=== PATIENT | male | born 1945 | race Caucasian/White ===

== ENCOUNTER 2020-10-23 18:47 | Inpatient (IN) | payer OTHER, MEDICARE ==
[2020-10-23] MEDS ORDERED: RX INFO: IV CONTRAST WAS GIVEN 1 EACH MISC MISCELLANE PRN (19:09)
[2020-10-23] MEDS ORDERED: DIPH,PERTUS(ACELL)TETVAC-LF 0.5 ML VIAL IM ONE (19:11)
[2020-10-23] MEDS ORDERED: MORPHINE SULFATE 4 MG/ML SYRINGE IV STA (19:11)
--- NOTE | 2020-10-23 19:12 | ED ---
Fall [facility] - General Chief Complaint: Fall Stated Complaint: fall, multiple lacs Time Seen by Provider: 10/23/20 19:04 Source: patient Mode of arrival: wheelchair - History of Present Illness Initial Comments: Patient presents with injuries after a fall. He has some abrasions on the right knee and left elbow. He complains of pain in the left abdomen and left chest. He did not hit his head. He develops conscious. He has no neck pain or stiffness. He has no nausea or vomiting. He has no weakness. He has no lightheadedness. He has no dizziness. He had no chest pain or pressure. - Related Data Allergies Allergy/AdvReac Type Severity Reaction Status Date / Time No Known Allergies Allergy Verified 10/23/20 18:58 Review of Systems ROS Statement: Those systems with pertinent positive or pertinent negative responses have been documented in the HPI. ROS Other: All systems not noted in ROS Statement are negative. Past Medical History Past Medical History: Heart Failure, Hypertension, Myocardial Infarction ([place]) Past Surgical History: Appendectomy, Coronary Bypass/CABG, Heart Catheterization With Stent Past Psychological History: No Psychological Hx Reported Smoking Status: Never smoker Past Alcohol Use History: None Reported Past Drug Use History: None Reported General Exam Limitations: no limitations General appearance: alert, in no apparent distress Head exam: Present: atraumatic, normocephalic, normal inspection Eye exam: Present: normal appearance, PERRL, EOMI. Absent: scleral icterus, conjunctival injection, periorbital swelling ENT exam: Present: normal exam, mucous membranes moist Neck exam: Present: normal inspection. Absent: tenderness, meningismus, lymphadenopathy Respiratory exam: Present: normal lung sounds bilaterally. Absent: respiratory distress, wheezes, rales, rhonchi, stridor Cardiovascular Exam: Present: regular rate, normal rhythm, normal heart sounds. Absent: systolic murmur, diastolic murmur, rubs, gallop, clicks GI/Abdominal exam: Present: soft, normal bowel sounds. Absent: distended, tenderness, guarding, rebound, rigid Extremities exam: Present: normal inspection, full ROM, normal capillary refill. Absent: tenderness, pedal edema, joint swelling, calf tenderness Back exam: Present: normal inspection Neurological exam: Present: alert, oriented X3, CN II-XII intact Psychiatric exam: Present: normal affect, normal mood Skin exam: Present: warm, dry, normal color, other (skin tears). Absent: rash Course Vital Signs 10/23/20 10/23/20 10/23/20 18:58 19:31 20:02 Temperature 97.5 F L Pulse Rate 104 H 65 60 Respiratory 24 20 16 Rate Blood Pressure 85/52 105/65 106/61 O2 Sat by Pulse 99 99 97 Oximetry 10/23/20 10/23/20 20:20 20:53 Temperature Pulse Rate 61 61 Respiratory 18 Rate Blood Pressure 92/47 83/47 O2 Sat by Pulse 96 Oximetry Medical Decision Making - Medical Decision Making Patient presents with a fall. He has multiple rib fractures. I consult surgery. He will be admitted to the hospital. - Lab Data Result diagrams: 10/23/20 19:30 10/23/20 19:20 Lab Results 10/23/20 10/23/20 10/23/20 Range/Units 19:20 19:20 19:30 WBC 15.4 H (3.8-10.6) k/uL RBC 4.13 L (4.30-5.90) m/uL Hgb 13.5 (13.0-17.5) gm/dL Hct 40.1 (39.0-53.0) % MCV 97.1 (80.0-100.0) fL MCH 32.6 (25.0-35.0) pg MCHC 33.6 (31.0-37.0) g/dL RDW 13.1 (11.5-15.5) % Plt Count 345 (150-450) k/uL MPV 7.4 Neutrophils % 86 % Lymphocytes % 9 % Monocytes % 3 % Eosinophils % 1 % Basophils % 0 % Neutrophils # 13.3 H (1.3-7.7) k/uL Lymphocytes # 1.3 (1.0-4.8) k/uL Monocytes # 0.5 (0-1.0) k/uL Eosinophils # 0.1 (0-0.7) k/uL Basophils # 0.1 (0-0.2) k/uL PT 10.5 (9.0-12.0) sec INR 1.0 (<1.2) APTT 22.5 (22.0-30.0) sec Sodium 136 L (137-145) mmol/L Potassium 4.2 (3.5-5.1) mmol/L Chloride 101 (98-107) mmol/L Carbon Dioxide 24 (22-30) mmol/L Anion Gap 11 mmol/L BUN 32 H (9-20) mg/dL Creatinine 1.49 H (0.66-1.25) mg/dL Est GFR (CKD-EPI)AfAm 53 (>60 ml/min/1.73 sqM) Est GFR (CKD-EPI)NonAf 45 (>60 ml/min/1.73 sqM) Glucose 151 H (74-99) mg/dL Calcium 9.3 (8.4-10.2) mg/dL 10/23/20 20:41 Twelve-lead EKG shows ventricular rate 64 bpm, there are no P waves present, the QRS complex is wide, there is no ST elevation or depression, interpreted by me as a ventricular paced rhythm. Disposition Clinical Impression: Rib fractures Disposition: ADMITTED IP TO THIS HOSP Condition: Fair Is patient prescribed a controlled substance at d/c from ED?: No Referrals: Nonstaff,Physician [Primary Care Provider] - 1-2 days
[2020-10-23] MEDS ORDERED: SODIUM CHLORIDE 0.9% 1,000 ML IV ONE (19:29)
[2020-10-23 19:39] LABS: Calcium 9.3 mg/dL (8.4-10.2); Potassium 4.2 mmol/L (3.5-5.1)
[2020-10-23 19:40] LABS: Partial Thromboplastin Time 22.5 sec (22.0-30.0); Prothrombin Time 10.5 sec (9.0-12.0)
[2020-10-23 19:42] LABS: Basophils # (A) 0.1 k/uL (0-0.2); Basophils % (A) 0 %; Eosinophils # (A) 0.1 k/uL (0-0.7); Eosinophils % (A) 1 %; HCT 40.1 % (39.0-53.0); HGB 13.5 gm/dL (13.0-17.5); Lymphocytes # (A) 1.3 k/uL (1.0-4.8); Lymphocytes % (A) 9 %; MCH 32.6 pg (25.0-35.0); MCHC 33.6 g/dL (31.0-37.0); MCV 97.1 fL (80.0-100.0); Mean Platelet Volume 7.4; Monocytes # (A) 0.5 k/uL (0-1.0); Monocytes % (A) 3 %; Neutrophils # (A) 13.3 k/uL (1.3-7.7); Neutrophils % (A) 86 %; Platelet Count 345 k/uL (150-450); RBC 4.13 m/uL (4.30-5.90); RDW 13.1 % (11.5-15.5); WBC 15.4 k/uL (3.8-10.6)
--- NOTE | 2020-10-23 19:50 | XR ---
EXAMINATION TYPE: XR shoulder complete LT DATE OF EXAM: 10/23/2020 COMPARISON: NONE HISTORY: Fall. Pain. TECHNIQUE: 3 views FINDINGS: I see no fracture nor dislocation. AC joint is intact. There is mild spurring at the AC cain nt. The glenohumeral joint is intact. There is left axillary pacemaker. IMPRESSION: Negative left shoulder exam.
--- NOTE | 2020-10-23 19:56 | XR ---
EXAMINATION TYPE: XR elbow complete LT DATE OF EXAM: 10/23/2020 COMPARISON: NONE HISTORY: Fall. Pain per TECHNIQUE: 3 views FINDINGS: I see no fracture nor dislocation. Elbow joint spaces are fairly normal. There is no sign o f elbow joint effusion. IMPRESSION: Negative left elbow exam. No fracture seen.
[2020-10-23] MEDS ORDERED: ONDANSETRON 4 MG/2 ML VIAL IVP PRN (21:00)
[2020-10-23] MEDS ORDERED: NALOXONE 0.4 MG/ML 1 ML VIAL IV PRN (21:00)
--- NOTE | 2020-10-23 21:01 | CT ---
EXAMINATION TYPE: CT ChestAbdPelvis w con DATE OF EXAM: 10/23/2020 COMPARISON: None HISTORY: Pt fall Pain CT DLP: 1567.3 mGycm Automated exposure control for dose reduction was used. CONTRAST: Performed with IV Contrast, patient injected with 80 mL of Isovue 300. Images obtained from the thoracic inlet to the floor the pelvis with IV contrast. There is some interstitial infiltrate and atelectasis at both lung bases. There is mild left pleural effusion. Heart is moderately enlarged. There is no pericardial effusion. Thoracic aorta is intact. T here is no aneurysm or dissection. There is enlarged 1.8 cm paratracheal lymph node. There are right bronchial lymph nodes measuring up to 1 cm. There is coronary artery calcification. There are sternal wires. Liver spleen stomach pancreas gallbladder appear intact. The bile ducts are not dilated. There is no adrenal mass. Kidneys show satisfactory contrast opacification. There is no hydronephrosi s. Ureters are not dilated. There is no retroperitoneal adenopathy. Bladder distends smoothly. There is no inguinal hernia. There is no free fluid in the pelvis. There are multiple sigmoid diverticula. There is no diverticulitis. There is minimal prostate calcification. There is no free fluid in the pe lvis. There is no mesenteric edema. There is no ascites or free air. There is no evidence of bowel obstruct ion. The thoracic and lumbar vertebra have normal alignment. There is no compression fracture. The bony pe lvis is intact. The hip joints are intact. There is no hip dysplasia. The shoulder joints are intact. There are fractures of the posterior lateral left side seventh and ei ghth and ninth and 10th ribs. IMPRESSION: Sigmoid diverticulosis without diverticulitis. Atherosclerotic vascular disease. Minimal infiltrate and atelectasis at the lung bases mainly on the left side. Small left pleural effu leonie. Moderate cardiomegaly. Multiple left-sided rib fractures. Pleural fluid on the left side could relate to hemothorax. No evidence of a pneumothorax.
[2020-10-23] MEDS: FAMOTIDINE 20 MG TAB PO SCH (21:46)
[2020-10-23] MEDS: HYDROcodone/APAP 5-325MG 1 EACH TAB PO PRN (23:20)
[2020-10-24 06:34] LABS: Basophils % (A) 0 %; Eosinophils # (A) 0.1 k/uL (0-0.7); Eosinophils % (A) 1 %; HCT 32.4 % (39.0-53.0); HGB 11.2 gm/dL (13.0-17.5); Lymphocytes # (A) 0.8 k/uL (1.0-4.8); Lymphocytes % (A) 9 %; MCH 33.6 pg (25.0-35.0); MCHC 34.6 g/dL (31.0-37.0); MCV 97.1 fL (80.0-100.0); Mean Platelet Volume 7.3; Monocytes # (A) 0.5 k/uL (0-1.0); Monocytes % (A) 6 %; Neutrophils # (A) 7.3 k/uL (1.3-7.7); Neutrophils % (A) 83 %; Platelet Count 215 k/uL (150-450); RBC 3.34 m/uL (4.30-5.90); RDW 13.2 % (11.5-15.5); WBC 8.9 k/uL (3.8-10.6)
--- NOTE | 2020-10-24 06:46 | XR ---
EXAMINATION TYPE: XR chest 1V DATE OF EXAM: 10/24/2020 CLINICAL HISTORY: Pain after recent trauma. TECHNIQUE: Single AP portable upright view of the chest is obtained. COMPARISON: CT from one day earlier FINDINGS: Osseous structures are demineralized. Underlying scoliotic curvature or positioning redemo nstrated. Persistent cardiomegaly with multilead pacemaker/fibrillator. Overlying sternal wires and m ediastinal clips redemonstrated. Worsening bilateral central opacities and possible left basilar opac ity. IMPRESSION: Cardiomegaly with new moderate central alveolar edema suggesting CHF exacerbation, correl ate clinically. Developing left basilar acute infiltrate not excluded. Progress study advised.
[2020-10-24] MEDS: HYDROcodone/APAP 5-325MG 1 EACH TAB PO PRN (08:09)
[2020-10-24] MEDS: DOCUSATE 100 MG CAP PO SCH (08:10)
[2020-10-24] MEDS: AMIODARONE 200 MG TAB PO SCH (11:57)
[2020-10-24] MEDS: PANTOPRAZOLE 40 MG TABLET PO SCH (11:57)
[2020-10-24] MEDS: FUROSEMIDE 10 MG/ML 10 ML VIAL IV SCH ×2 (11:57→22:10)
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
[2020-10-24] MEDS: HYDROmorphone 1 MG/ML 1 ML SYRINGE IVP PRN ×2 (13:04→20:16)
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
[2020-10-24] MEDS: PRAVASTATIN SODIUM 80 MG TAB PO SCH (22:10)
[2020-10-24] MEDS: APIXABAN 5 MG TAB PO SCH (22:10)
[2020-10-24] MEDS: FAMOTIDINE 20 MG TAB PO SCH (22:11)
[2020-10-25] MEDS: HYDROmorphone 1 MG/ML 1 ML SYRINGE IVP PRN ×2 (01:59→06:17)
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
[2020-10-25] MEDS: PANTOPRAZOLE 40 MG TABLET PO SCH (06:18)
[2020-10-25 08:03] LABS: Basophils # (A) 0.1 k/uL (0-0.2); Basophils % (A) 0 %; Eosinophils # (A) 0.1 k/uL (0-0.7); Eosinophils % (A) 1 %; HCT 36.6 % (39.0-53.0); HGB 12.1 gm/dL (13.0-17.5); Lymphocytes # (A) 1.3 k/uL (1.0-4.8); Lymphocytes % (A) 10 %; MCH 32.7 pg (25.0-35.0); MCHC 33.1 g/dL (31.0-37.0); MCV 98.6 fL (80.0-100.0); Mean Platelet Volume 7.5; Monocytes # (A) 0.8 k/uL (0-1.0); Monocytes % (A) 7 %; Neutrophils # (A) 9.8 k/uL (1.3-7.7); Neutrophils % (A) 80 %; Platelet Count 241 k/uL (150-450); RBC 3.71 m/uL (4.30-5.90); RDW 13.1 % (11.5-15.5); WBC 12.1 k/uL (3.8-10.6)
[2020-10-25 08:13] LABS: African American GFR (CKD) >90 (>60 ml/min/1.73 sqM); Anion Gap 9 mmol/L; Blood Urea Nitrogen 17 mg/dL (9-20); Calcium 9.1 mg/dL (8.4-10.2); Carbon Dioxide 30 mmol/L (22-30); Chloride 98 mmol/L (98-107); Glucose 112 mg/dL (74-99); Non-African American GFR(CKD) 84 (>60 ml/min/1.73 sqM); Sodium 137 mmol/L (137-145)
[2020-10-25] MEDS: METOPROLOL SUCCINATE (ER) 25 MG TAB.ER.24H PO SCH (08:18)
[2020-10-25] MEDS: HYDROcodone/APAP 5-325MG 1 EACH TAB PO PRN ×4 (08:18→21:11)
[2020-10-25] MEDS: APIXABAN 5 MG TAB PO SCH ×2 (08:19→20:12)
[2020-10-25] MEDS: AMIODARONE 200 MG TAB PO SCH (08:19)
[2020-10-25] MEDS: FUROSEMIDE 10 MG/ML 10 ML VIAL IV SCH ×2 (08:19→20:12)
[2020-10-25] MEDS: Eplerenone [Eplerenone] 25 MG Tablet PO SCH (08:19)
[2020-10-25] MEDS: DOCUSATE 100 MG CAP PO SCH (08:19)
--- NOTE | 2020-10-25 08:56 | XR ---
EXAMINATION TYPE: XR chest 1V portable DATE OF EXAM: 10/25/2020 Comparison: 10/24/2020 Clinical History: 75-year-old male pleural effusion Findings: Left anterior chest wall AICD generator with 2 right ventricular leads, a right atrial, and a coronar y sinus lead. Mildly enlarged. Median sternotomy wires are present with post-CABG clips. Mild interst itial prominence. Retrocardiac opacity persists. Perihilar density shows some improvement. Impression: Most of the interstitial changes are suspected to be chronic but there has been slight improvement. R etrocardiac effusion with atelectasis and/or consolidation is similar.
[2020-10-25] MEDS ORDERED: lisinopriL 10 MG TAB PO SCH (09:00)
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
--- NOTE | 2020-10-25 12:42 | P.PN ---
Subjective Progress Note Date: 10/25/20 CHIEF COMPLAINT: Fall with rib fractures HISTORY OF PRESENT ILLNESS: Patient still complaining of left-sided rib pain. Pain medication does make it tolerable. Shortness of breath is improving. Oxygen requirements down from 3-2 L. He has felt that pulmonary service. Decreased appetite. Chest x-ray most of the interstitial changes are suspected to be chronic but there has been slight improvement. Retrocardiac effusion with atelectasis and/or consolidation similar. Afebrile. WBC 12.1 and hemoglobin 12.1 platelets 241 PHYSICAL EXAM: VITAL SIGNS: Reviewed. GENERAL: Well-developed in no acute distress. HEENT: No sclera icterus. Extraocular movements grossly intact. Moist buccal mucosa. Head is atraumatic, normocephalic. ABDOMEN: Soft. Nondistended. Nontender. NEUROLOGIC: Alert and oriented. Cranial nerves II through XII grossly intact. Skin: Extensive bruising along the left rib cage. Skin abrasions on both knees ASSESSMENT: 1. Trauma secondary to fall 2. Multiple left-sided rib fractures 3. Small left pleural effusion suspected hemothorax. No evidence of pneumothorax 4. Acute hypoxic respiratory failure PLAN: -Consult PT OT -Encourage patient to increase activity -Encourage patient to use incentive spirometer -Continue pain medication as needed -Continue supportive care Physician Special Education Assistant note has been reviewed by physician. Signing provider agrees with the documented findings, assessment, and plan of care. Objective - Vital Signs Vital signs: Vital Signs Temp 97.8 F 10/25/20 07:55 Pulse 68 10/25/20 11:30 Resp 18 10/25/20 11:30 BP 129/58 10/25/20 11:30 Pulse Ox 97 10/25/20 11:30 Intake & Output 10/24/20 10/25/20 10/25/20 18:59 06:59 18:59 Output Total 975 225 Balance -975 -225 Weight 77.111 kg 75.4 kg Output: Urine 975 225 Other: Voiding Method Urinal Urinal Urinal - Labs CBC & Chem 7: 10/25/20 07:28 10/25/20 07:28 Labs: Abnormal Lab Results - Last 24 Hours (Table) 10/25/20 10/25/20 Range/Units 07:28 07:28 WBC 12.1 H (3.8-10.6) k/uL RBC 3.71 L (4.30-5.90) m/uL Hgb 12.1 L (13.0-17.5) gm/dL Hct 36.6 L (39.0-53.0) % Neutrophils # 9.8 H (1.3-7.7) k/uL Glucose 112 H (74-99) mg/dL
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
[2020-10-25] MEDS: FAMOTIDINE 20 MG TAB PO SCH (20:12)
[2020-10-25] MEDS: PRAVASTATIN SODIUM 80 MG TAB PO SCH (22:21)
[2020-10-26] MEDS: HYDROcodone/APAP 5-325MG 1 EACH TAB PO PRN ×4 (02:20→17:43)
[2020-10-26 06:14] LABS: Basophils % (A) 0 %; Eosinophils # (A) 0.1 k/uL (0-0.7); Eosinophils % (A) 1 %; HCT 33.4 % (39.0-53.0); HGB 11.1 gm/dL (13.0-17.5); Lymphocytes # (A) 1.1 k/uL (1.0-4.8); Lymphocytes % (A) 11 %; MCH 32.5 pg (25.0-35.0); MCHC 33.4 g/dL (31.0-37.0); MCV 97.5 fL (80.0-100.0); Mean Platelet Volume 8.3; Monocytes # (A) 0.7 k/uL (0-1.0); Monocytes % (A) 7 %; Neutrophils # (A) 7.6 k/uL (1.3-7.7); Neutrophils % (A) 79 %; Platelet Count 221 k/uL (150-450); RBC 3.42 m/uL (4.30-5.90); RDW 13.1 % (11.5-15.5); WBC 9.6 k/uL (3.8-10.6)
[2020-10-26] MEDS: PANTOPRAZOLE 40 MG TABLET PO SCH (06:28)
[2020-10-26] MEDS: FUROSEMIDE 10 MG/ML 10 ML VIAL IV SCH (08:56)
[2020-10-26] MEDS: DOCUSATE 100 MG CAP PO SCH (08:57)
[2020-10-26] MEDS: AMIODARONE 200 MG TAB PO SCH (08:57)
[2020-10-26] MEDS: APIXABAN 5 MG TAB PO SCH ×2 (08:57→20:45)
[2020-10-26] MEDS: METOPROLOL SUCCINATE (ER) 25 MG TAB.ER.24H PO SCH (08:57)
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
[2020-10-26] MEDS: Eplerenone [Eplerenone] 25 MG Tablet PO SCH (12:02)
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
--- NOTE | 2020-10-26 12:50 | P.PN ---
Subjective Progress Note Date: 10/26/20 CHIEF COMPLAINT: Fall with rib fractures HISTORY OF PRESENT ILLNESS: Patient reported improvement in his pain each day. He is up and sitting in bedside chair. He was seen by cardiology they've ordered a 2-D echo. He denies any nausea or vomiting. Appetite is still diminished. Afebrile. White count has normalized at 9.6 hemoglobin is 11.1 he is on room air satting at 91%. PHYSICAL EXAM: VITAL SIGNS: Reviewed. GENERAL: Well-developed in no acute distress. HEENT: No sclera icterus. Extraocular movements grossly intact. Moist buccal mucosa. Head is atraumatic, normocephalic. ABDOMEN: Soft. Nondistended. Nontender. NEUROLOGIC: Alert and oriented. Cranial nerves II through XII grossly intact. Skin: Extensive bruising along the left rib cage. Skin abrasions on both knees ASSESSMENT: 1. Trauma secondary to fall 2. Multiple left-sided rib fractures 3. Small left pleural effusion suspected hemothorax. No evidence of pneumothorax 4. Acute hypoxic respiratory failure PLAN: -Encourage patient to increase activity -Encourage patient to use incentive spirometer -Continue pain medication as needed -Continue supportive care -Anticipate discharge tomorrow Physician Server Manager note has been reviewed by physician. Signing provider agrees with the documented findings, assessment, and plan of care. Objective - Vital Signs Vital signs: Vital Signs Temp 98.2 F 10/26/20 08:05 Pulse 68 10/26/20 08:05 Resp 17 10/26/20 10:36 BP 99/60 10/26/20 08:05 Pulse Ox 91 L 10/26/20 10:36 Intake & Output 10/25/20 10/26/20 10/26/20 18:59 06:59 18:59 Intake Total 480 600 Output Total 225 900 600 Balance 255 -300 -600 Weight 75.4 kg Intake: Oral 480 600 Output: Urine 225 900 600 Other: Voiding Method Urinal Urinal # Voids 1 - Labs CBC & Chem 7: 10/26/20 05:54 10/25/20 07:28 Labs: Abnormal Lab Results - Last 24 Hours (Table) 10/26/20 Range/Units 05:54 RBC 3.42 L (4.30-5.90) m/uL Hgb 11.1 L (13.0-17.5) gm/dL Hct 33.4 L (39.0-53.0) %
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
--- NOTE | 2020-10-26 18:29 | ECHOF ---
Referral Reason:LV function MEASUREMENTS -------- HEIGHT: 165.1 cm WEIGHT: 75.3 kg BP: 99/60 RVIDd: 3.3 cm (< 3.3) IVSd: 1.0 cm (0.6 - 1.1) LVIDd: 6.4 cm (3.9 - 5.3) LVPWd: 1.1 cm (0.6 - 1.1) IVSs: 1.0 cm LVIDs: 6.2 cm LVPWs: 1.3 cm LA Diam: 4.5 cm (2.7 - 3.8) LAESV Index (A-L): 40.75 ml/m Ao Diam: 3.2 cm (2.0 - 3.7) AV Cusp: 1.5 cm (1.5 - 2.6) MV EXCURSION: 13.883 mm (> 18.000) MV EF SLOPE: 33 mm/s (70 - 150) EPSS: 3.7 cm MV E Sai: 0.70 m/s MV DecT: 268 ms MV A Sai: 0.82 m/s MV E/A Ratio: 0.85 RAP: 5.00 mmHg RVSP: 34.50 mmHg FINDINGS -------- This was a technically difficult study with suboptimal views. The left ventricle is moderately dilated. There is borderline concentric left ventricular hypertrop hy. Overall left ventricular systolic function is severely impaired with, an EF < 20%. Global hyp okinesis The right ventricle is mildly enlarged. LA is severely dilated >40 ml/m2 The right atrium was not well visualized. 5 ml of Lumason was utilized for enhancement of images. Interatrial and interventricular septum intact. The aortic valve is trileaflet, and appears structurally normal. No aortic stenosis or regurgitation. Mild mitral annular calcification present. Mild tricuspid regurgitation present. Right ventricular systolic pressure is normal at < 35 mmHg. The right ventricular systolic pressure, as measured by Doppler, is 34.50mmHg. The pulmonic valve was not well visualized. The aortic root size is normal. Normal inferior vena cava with normal inspiratory collapse consistent with estimated right atrial pre ssure of 5 mmHg. There is no pericardial effusion. CONCLUSIONS -------- 1. This was a technically difficult study with suboptimal views. 2. The left ventricle is moderately dilated. 3. There is borderline concentric left ventricular hypertrophy. 4. Overall left ventricular systolic function is severely impaired with, an EF < 20%. 5. Global hypokinesis 6. The right ventricle is mildly enlarged. 7. LA is severely dilated >40 ml/m2 8. 5 ml of Lumason was utilized for enhancement of images. 9. The aortic valve is trileaflet, and appears structurally normal. No aortic stenosis or regurgitati on. 10. Mild mitral annular calcification present. 11. Mild tricuspid regurgitation present. 12. There is no pericardial effusion. [employer] SUPERVISOR: Karla Vogt RDCS
[2020-10-26] MEDS: HYDROmorphone 1 MG/ML 1 ML SYRINGE IVP PRN (20:44)
[2020-10-26] MEDS: FAMOTIDINE 20 MG TAB PO SCH (20:45)
[2020-10-26] MEDS: PRAVASTATIN SODIUM 80 MG TAB PO SCH (20:46)
[2020-10-26 20:49] VITALS: RESP 16
[2020-10-26] MEDS ORDERED: FUROSEMIDE 20 MG TAB PO SCH (21:00)
[2020-10-27] MEDS: HYDROcodone/APAP 5-325MG 1 EACH TAB PO PRN ×3 (02:11→14:07)
[2020-10-27] MEDS: PANTOPRAZOLE 40 MG TABLET PO SCH (06:32)
[2020-10-27] MEDS: APIXABAN 5 MG TAB PO SCH (08:26)
[2020-10-27] MEDS: AMIODARONE 200 MG TAB PO SCH (08:26)
[2020-10-27] MEDS: METOPROLOL SUCCINATE (ER) 25 MG TAB.ER.24H PO SCH (08:26)
[2020-10-27] MEDS: DOCUSATE 100 MG CAP PO SCH (08:26)
[2020-10-27 08:49] LABS: African American GFR (CKD) >90 (>60 ml/min/1.73 sqM); Anion Gap 10 mmol/L; Blood Urea Nitrogen 24 mg/dL (9-20); Calcium 9.2 mg/dL (8.4-10.2); Carbon Dioxide 30 mmol/L (22-30); Chloride 93 mmol/L (98-107); Glucose 123 mg/dL (74-99); Magnesium 2.4 mg/dL (1.6-2.3); Non-African American GFR(CKD) 85 (>60 ml/min/1.73 sqM); Sodium 133 mmol/L (137-145)
[2020-10-27 08:53] LABS: HGB 11.5 gm/dL (13.0-17.5); MCH 33.3 pg (25.0-35.0); MCV 98.1 fL (80.0-100.0); Platelet Count 267 k/uL (150-450); RBC 3.46 m/uL (4.30-5.90); RDW 13.7 % (11.5-15.5); WBC 11.3 k/uL (3.8-10.6)
[2020-10-27 08:58] VITALS: BP 116/64; PULSE 62; TEMP 98.1
[2020-10-27] MEDS ORDERED: FUROSEMIDE 80 MG TAB PO SCH (09:00)
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
== END 2020-10-27 14:11 | disposition home health service (06) | DRG 183 ==
LOC: EC 18:47 → 6NMEDSUR 21:00 → OBSVTOIN 10-24 11:12 → 6NMEDSUR 10-24 11:14 → 3SCARD 10-24 11:16
PROVIDERS: ADMIT Surgery; ATTEND Surgery
DX: S22.42XA Multiple fractures of ribs, left side, initial encounter for closed fracture (principal); I50.23 Acute on chronic systolic (congestive) heart failure; J96.01 Acute respiratory failure with hypoxia; S27.1XXA Traumatic hemothorax, initial encounter; I48.19 Other persistent atrial fibrillation; S27.329A Contusion of lung, unspecified, initial encounter; S80.211A Abrasion, right knee, initial encounter; S50.311A Abrasion of right elbow, initial encounter; L40.9 Psoriasis, unspecified; D72.829 Elevated white blood cell count, unspecified; E78.5 Hyperlipidemia, unspecified; I11.0 Hypertensive heart disease with heart failure; I25.10 Atherosclerotic heart disease of native coronary artery without angina pectoris; I25.5 Ischemic cardiomyopathy; I25.2 Old myocardial infarction; W01.0XXA Fall on same level from slipping, tripping and stumbling without subsequent striking against object, initial encounter; Z79.01 Long term (current) use of anticoagulants; Z20.822 Contact with and (suspected) exposure to COVID-19; Z79.02 Long term (current) use of antithrombotics/antiplatelets; Z79.899 Other long term (current) drug therapy; Z87.891 Personal history of nicotine dependence; Z95.1 Presence of aortocoronary bypass graft; Z95.5 Presence of coronary angioplasty implant and graft; Z95.810 Presence of automatic (implantable) cardiac defibrillator; Z98.42 Cataract extraction status, left eye; Z98.41 Cataract extraction status, right eye; Z96.1 Presence of intraocular lens; Z88.8 Allergy status to other drugs, medicaments and biological substances
CPT/HCPCS: 36415; 71045; 71260; 74177; 80048; 83605; 83735; 83880; 84484; 85025; 85027; 85610; 85730; 90471; 90715; 93005; 93306; 94760; 96361; 96374; 99285